=== PATIENT | female | born 1990 | race Caucasian/White ===

== ENCOUNTER 2016-12-16 22:06 | Emergency (ER) | payer SELFPAY ==
[~2016-12-16 22:06] MED LIST: AUGMENTIN 875-1 EAC2 PO; NORCO 5-325 TA1 EACH PO
== END 2016-12-16 23:50 | disposition left against medical advice (07) ==
LOC: EDMED 22:06
DX: Z53.21 Procedure and treatment not carried out due to patient leaving prior to being seen by health care provider (principal)